=== PATIENT | male | born 1945 | race Caucasian/White ===

== ENCOUNTER 2016-10-31 16:21 | Inpatient (IN) | payer MEDICARE ==
[2016-10-31] MEDS ORDERED: MORPHINE SULFATE 4 MG/ML SYRINGE IVP STA (16:40)
[2016-10-31] MEDS ORDERED: ONDANSETRON 4 MG/2 ML VIAL IVP STA (16:40)
[2016-10-31] MEDS ORDERED: SODIUM CHLORIDE 0.9% 1,000 ML IV STA ×2 (16:40→19:33)
[2016-10-31] MEDS ORDERED: RX INFO: IV CONTRAST WAS GIVEN 1 EACH MISC MISCELLANE PRN (16:41)
--- NOTE | 2016-10-31 16:46 | ED ---
Abdominal Pain HPI - General Chief Complaint: Abdominal Pain Stated Complaint: Abdominal Pain, poss obstruction Time Seen by Provider: 10/31/16 16:32 Source: patient Mode of arrival: wheelchair Limitations: no limitations - History of Present Illness Initial Comments: Patient is a 71-year-old male with past medical history of HLD and colitis as a teen presenting with 2 days of abdominal pain. Patient states he's been dealing with bowel movements for the past 2 days. On he did take a stool softener to help bowel movement. Patient even took a fleets enema. Patient developed left lower quadrant pain which is worsening. He hasn't taken anything for the pain as bowel movements were helping the pain. Patient does not relate any thing that makes it worse. Patient denies fever but admits to chills. Denies nausea or vomiting. Denies diarrhea. Patient has been having bowel movements with medication assistance. Patient also complains of urinary frequency but not hematuria. Patient states pain changed around 12:00 today. Denies history of kidney stones. - Related Data Home Medications Medication Instructions Recorded Confirmed Atorvastatin [Lipitor] 40 mg PO HS 10/31/16 10/31/16 Allergies Allergy/AdvReac Type Severity Reaction Status Date / Time No Known Allergies Allergy Verified 10/31/16 19:43 Review of Systems ROS Statement: Those systems with pertinent positive or pertinent negative responses have been documented in the HPI. Constitutional: No fever and +chills. HENT: No congestion, no rhinorrhea and no sore throat. Eyes: No discharge and no redness. Respiratory: No cough and no shortness of breath. Cardiovascular: No chest pain and no palpitations. Gastrointestinal: No nausea, no vomiting, +abdominal pain and no diarrhea. Genitourinary: No dysuria and no hematuria. Musculoskeletal: No back pain and no arthralgias. Skin: No pallor and no rash. Neurological: No dizziness and No headaches. ROS Other: All systems not noted in ROS Statement are negative. Past Medical History Past Medical History: Hyperlipidemia History of Any Multi-Drug Resistant Organisms: None Reported Past Surgical History: Orthopedic Surgery Additional Past Surgical History / Comment(s): left foot Past Psychological History: No Psychological Hx Reported Smoking Status: Never smoker Past Alcohol Use History: Rare Past Drug Use History: None Reported General Exam - General Exam Comments Initial Comments: Constitutional: Patient appears well-developed and well-nourished. Severe distress. Head: Normocephalic and atraumatic. Eyes: Conjunctivae and EOM are normal. Right eye exhibits no discharge. Left eye exhibits no discharge. No scleral icterus. Neck: Normal range of motion. Neck supple. Cardiovascular: Normal rate and regular rhythm. No murmur heard. Pulmonary/Chest: Effort normal and breath sounds normal. No respiratory distress. No wheezes. Abdominal: Abdomen is soft with mild distention. He is most tender in left lower quadrant. No rebound or guarding. No CVA tenderness bilaterally. Musculoskeletal: Normal range of motion. No edema or tenderness. Neurological: Patient alert and oriented to person, place, and time. Skin: Skin is warm and dry. Not diaphoretic. Nursing notes and vitals reviewed. Limitations: no limitations Course Vital Signs 10/31/16 16:26 Temperature 97.2 F L Pulse Rate 73 Respiratory 16 Rate Blood Pressure 151/77 O2 Sat by Pulse 98 Oximetry - Reevaluation(s) Reevaluation #1: 10/31/16 18:28 Patient with severe abdominal pain. Patient was given IV fluids and morphine with little improvement. Patient required second dose of Dilaudid. - Consultations Consultation #1: Discussed care with Dr. Quintana. Explain that patient is a 71-year-old male with an obstructive left proximal ureteral lithiasis measuring 1 x 1.8 cm with hydronephrosis and possible forniceal rupture. Dr. Quintana recommends Toradol and then seeing if patient needs hospitalization for pain management. Medical Decision Making - Medical Decision Making Patient's a 71-year-old male with history of hyperlipidemia presenting with acute onset of left lower quadrant abdominal pain. Patient's pain was treated with morphine and IV fluids. Patient required Dilaudid as morphine was not helping his pain. CBC unremarkable. BMP showing BUN 22 and creatinine 1.47. UA showing ketones. CT shows a obstructive 11 mm ureterolithiasis at the proximal ureter with severe hydronephrosis and perinephric stranding. Patient was resting in bed. Course of stay improved but patient is concerned about return of pain. Stable pain at this time. Discussed physical exam and diagnostic tests with patient. Questions answered and patient is agreeable to staying in the hospital. Discussed H&P and pertinent diagnostic tests with Dr. Quintana who agrees with plan and accepts admission of patient. - Lab Data Result diagrams: 10/31/16 16:46 10/31/16 16:46 Lab Results 10/31/16 10/31/16 10/31/16 Range/Units 16:46 16:46 16:46 WBC 9.5 (3.8-10.6) k/uL RBC 5.30 (4.30-5.90) m/uL Hgb 14.5 (13.0-17.5) gm/dL Hct 43.7 (39.0-53.0) % MCV 82.4 D (80.0-100.0) fL MCH 27.3 (25.0-35.0) pg MCHC 33.1 (31.0-37.0) g/dL RDW 12.9 (11.5-15.5) % Plt Count 162 (150-450) k/uL Neutrophils % (Manual) 84.0 % Lymphocytes % (Manual) 7.0 % Monocytes % (Manual) 8.0 % Eosinophils % (Manual) 1.0 % Neutrophils # (Manual) 8.0 H (1.3-7.7) k/uL Lymphocytes # (Manual) 0.7 L (1.0-4.8) k/uL Monocytes # (Manual) 0.8 (0-1.0) k/uL Eosinophils # (Manual) 0.1 (0-0.7) k/uL Nucleated RBCs 0 (0-0) /100 WBC Manual Slide Review Performed PT (9.0-12.0) sec INR (<1.1) APTT (22.0-30.0) sec Sodium 136 L (137-145) mmol/L Potassium 4.0 (3.5-5.1) mmol/L Chloride 96 L (98-107) mmol/L Carbon Dioxide 25 (22-30) mmol/L Anion Gap 15 mmol/L BUN 22 H (9-20) mg/dL Creatinine 1.47 H (0.66-1.25) mg/dL Est GFR (MDRD) Af Amer 57 (>60 ml/min/1.73 sqM) Est GFR (MDRD) Non-Af 47 (>60 ml/min/1.73 sqM) Glucose 138 H (74-99) mg/dL Plasma Lactic Acid Jose David (0.7-2.0) mmol/L Calcium 9.6 (8.4-10.2) mg/dL Magnesium 1.6 (1.6-2.3) mg/dL Total Bilirubin 1.2 (0.2-1.3) mg/dL AST 21 (17-59) U/L ALT 39 (21-72) U/L Alkaline Phosphatase 100 (38-126) U/L Total Protein 7.8 (6.3-8.2) g/dL Albumin 4.5 (3.5-5.0) g/dL Lipase 88 (23-300) U/L Urine Color Urine Appearance (Clear) Urine pH (5.0-8.0) Ur Specific [place] (1.001-1.035) Urine Protein (Negative) Urine Glucose (UA) (Negative) Urine Ketones (Negative) Urine Blood (Negative) Urine Nitrate (Negative) Urine Bilirubin (Negative) Urine Urobilinogen (<2.0) mg/dL Ur Leukocyte Esterase (Negative) Blood Type B Negative Blood Type Confirm Blood Type Recheck CABO Indicated Antibody Screen NEGATIVE Spec Expiration Date 11/03/2016234510/31/16 10/31/16 10/31/16 Range/Units 16:46 17:00 17:16 WBC (3.8-10.6) k/uL RBC (4.30-5.90) m/uL Hgb (13.0-17.5) gm/dL Hct (39.0-53.0) % MCV (80.0-100.0) fL MCH (25.0-35.0) pg MCHC (31.0-37.0) g/dL RDW (11.5-15.5) % Plt Count (150-450) k/uL Neutrophils % (Manual) % Lymphocytes % (Manual) % Monocytes % (Manual) % Eosinophils % (Manual) % Neutrophils # (Manual) (1.3-7.7) k/uL Lymphocytes # (Manual) (1.0-4.8) k/uL Monocytes # (Manual) (0-1.0) k/uL Eosinophils # (Manual) (0-0.7) k/uL Nucleated RBCs (0-0) /100 WBC Manual Slide Review PT 10.2 (9.0-12.0) sec INR 1.0 (<1.1) APTT 22.4 (22.0-30.0) sec Sodium (137-145) mmol/L Potassium (3.5-5.1) mmol/L Chloride (98-107) mmol/L Carbon Dioxide (22-30) mmol/L Anion Gap mmol/L BUN (9-20) mg/dL Creatinine (0.66-1.25) mg/dL Est GFR (MDRD) Af Amer (>60 ml/min/1.73 sqM) Est GFR (MDRD) Non-Af (>60 ml/min/1.73 sqM) Glucose (74-99) mg/dL Plasma Lactic Acid Jose David 2.0 (0.7-2.0) mmol/L Calcium (8.4-10.2) mg/dL Magnesium (1.6-2.3) mg/dL Total Bilirubin (0.2-1.3) mg/dL AST (17-59) U/L ALT (21-72) U/L Alkaline Phosphatase (38-126) U/L Total Protein (6.3-8.2) g/dL Albumin (3.5-5.0) g/dL Lipase (23-300) U/L Urine Color Yellow Urine Appearance Clear (Clear) Urine pH 7.0 (5.0-8.0) Ur Specific [place] 1.013 (1.001-1.035) Urine Protein Negative (Negative) Urine Glucose (UA) Trace H (Negative) Urine Ketones 1+ H (Negative) Urine Blood Negative (Negative) Urine Nitrate Negative (Negative) Urine Bilirubin Negative (Negative) Urine Urobilinogen <2.0 (<2.0) mg/dL Ur Leukocyte Esterase Negative (Negative) Blood Type Blood Type Confirm Blood Type Recheck Antibody Screen Spec Expiration Date 10/31/16 Range/Units 18:21 WBC (3.8-10.6) k/uL RBC (4.30-5.90) m/uL Hgb (13.0-17.5) gm/dL Hct (39.0-53.0) % MCV (80.0-100.0) fL MCH (25.0-35.0) pg MCHC (31.0-37.0) g/dL RDW (11.5-15.5) % Plt Count (150-450) k/uL Neutrophils % (Manual) % Lymphocytes % (Manual) % Monocytes % (Manual) % Eosinophils % (Manual) % Neutrophils # (Manual) (1.3-7.7) k/uL Lymphocytes # (Manual) (1.0-4.8) k/uL Monocytes # (Manual) (0-1.0) k/uL Eosinophils # (Manual) (0-0.7) k/uL Nucleated RBCs (0-0) /100 WBC Manual Slide Review PT (9.0-12.0) sec INR (<1.1) APTT (22.0-30.0) sec Sodium (137-145) mmol/L Potassium (3.5-5.1) mmol/L Chloride (98-107) mmol/L Carbon Dioxide (22-30) mmol/L Anion Gap mmol/L BUN (9-20) mg/dL Creatinine (0.66-1.25) mg/dL Est GFR (MDRD) Af Amer (>60 ml/min/1.73 sqM) Est GFR (MDRD) Non-Af (>60 ml/min/1.73 sqM) Glucose (74-99) mg/dL Plasma Lactic Acid Jose David (0.7-2.0) mmol/L Calcium (8.4-10.2) mg/dL Magnesium (1.6-2.3) mg/dL Total Bilirubin (0.2-1.3) mg/dL AST (17-59) U/L ALT (21-72) U/L Alkaline Phosphatase (38-126) U/L Total Protein (6.3-8.2) g/dL Albumin (3.5-5.0) g/dL Lipase (23-300) U/L Urine Color Urine Appearance (Clear) Urine pH (5.0-8.0) Ur Specific [place] (1.001-1.035) Urine Protein (Negative) Urine Glucose (UA) (Negative) Urine Ketones (Negative) Urine Blood (Negative) Urine Nitrate (Negative) Urine Bilirubin (Negative) Urine Urobilinogen (<2.0) mg/dL Ur Leukocyte Esterase (Negative) Blood Type Blood Type Confirm B Negative Blood Type Recheck Antibody Screen Spec Expiration Date Disposition Clinical Impression: Ureterolithiasis, Hydronephrosis, Ileus Disposition: ADMITTED IP TO [facility] Condition: Good Decision to Admit Reason: Admit from EC
[2016-10-31 17:08] LABS: Calcium 9.6 mg/dL (8.4-10.2); Magnesium 1.6 mg/dL (1.6-2.3); Partial Thromboplastin Time 22.4 sec (22.0-30.0); Prothrombin Time 10.2 sec (9.0-12.0); Total Bilirubin 1.2 mg/dL (0.2-1.3); Total Protein 7.8 g/dL (6.3-8.2)
[2016-10-31 17:09] LABS: Aty Lym Flag Marked; CH 28.5; CHCM 34.7; HCT 43.7 % (39.0-53.0); HDW 2.79; HGB 14.5 gm/dL (13.0-17.5); MCH 27.3 pg (25.0-35.0); MCHC 33.1 g/dL (31.0-37.0); Mean Platelet Volume 6.6; RDW 12.9 % (11.5-15.5); WBC 9.5 k/uL (3.8-10.6); WBC (Perox) 9.33
[2016-10-31 17:10] LABS: MCV 82.4 fL (80.0-100.0)
[2016-10-31] MEDS ORDERED: HYDROmorphone 1 MG/ML 1 ML SYRINGE IVP STA (17:21)
[2016-10-31 17:24] LABS: Appearance,Urine Clear (Clear); Bilirubin,Urine Negative (Negative); Glucose,Urine (UA) Trace (Negative); Ketones,Urine 1+ (Negative); Leukocyte Esterase,Urine Negative (Negative); Nitrite,Urine Negative (Negative); Protein,Urine Negative (Negative); Specific Gravity,Urine 1.013 (1.001-1.035); UA Billing (MACRO vs. MICRO) CHEM; Urobilinogen,Urine <2.0 mg/dL (<2.0)
[2016-10-31 18:14] LABS: Add Differential Manual Differential
[2016-10-31 18:20] LABS: Manual Review Performed; Nucleated Red Blood Cells 0 /100 WBC (0-0); Total Cells Counted 100
--- NOTE | 2016-10-31 18:36 | CT ---
EXAMINATION TYPE: CT abdomen pelvis wo con DATE OF EXAM: 10/31/2016 5:54 PM COMPARISON: Prior chest CT 12 August 2011 HISTORY: Left lower quadrant pain and left flank pain. CT DLP: 521.40 mGycm Automated exposure control for dose reduction was used. TECHNIQUE: Helical acquisition of images from the lung bases through the pelvis. FINDINGS: There are coronary artery calcifications. LUNG BASES: No significant abnormality is appreciated. AORTA: No significant abnormality is appreciated. LIVER/GB: Cystic focus within the left lobe measures 13 mm is stable PANCREAS: No significant abnormality is seen. SPLEEN: No significant abnormality is seen. ADRENALS: No significant abnormality is seen. KIDNEYS: There is marked left-sided hydronephrosis, there is perirenal fluid density. Proximal left u reteral calculus is present measuring 1 cm x 1.8 cm. Nonobstructive renal calculi are present bilater ally, the largest at the lower pole on the right measures 5 mm, and additional 2 calcifications measu ring 1 to 2 mm. The upper pole calcifications within the left kidney measuring 1 to 2 mm, mid pole 2 calcifications are present, the larger measures 7 mm, the smaller 2 mm. REPRODUCTIVE ORGANS: Prostate is enlarged. URINARY BLADDER: Inferior impression on the bladder due to prostate enlargement. BOWEL: No evident bowel obstruction. FREE AIR: No Free Air is visible. ASCITES: None visible. PELVIC ADENOPATHY: None visualized. RETROPERITONEAL ADENOPATHY: No Retroperitoneal Adenopathy visible. OSSEOUS STRUCTURES: Degenerative disc changes, facet arthropathy noted IMPRESSION: PROXIMAL LEFT URETERAL CALCULUS CAUSING HYDRONEPHROSIS AND LIKELY FORNICEAL RUPTURE, bilateral nephro lithiasis. Noncontrast exam.
[2016-10-31] MEDS ORDERED: KETOROLAC 30 MG/ML 1 ML VIAL IVP STA (18:48)
--- NOTE | 2016-10-31 19:13 | XR ---
Abdomen HISTORY: Left flank pain Correlation to CT scan same date Proximal left ureteral calculus is noted in the left paraspinal location at the level L3. Contrast is present within the bladder. Distention of the colon may be due to ileus. Left-sided renal calculi moralez spected. Bowel gas obscures underlying detail. IMPRESSION: Proximal left ureteral calculus.
[2016-10-31] MEDS ORDERED: HYDROcodone/APAP 5-325MG 1 EACH TAB PO PRN (19:39)
[2016-10-31] MEDS ORDERED: NALOXONE 0.4 MG/ML 1 ML VIAL IV PRN (19:39)
[2016-10-31] MEDS ORDERED: KETOROLAC 30 MG/ML 1 ML VIAL IVP PRN (19:39)
[2016-10-31] MEDS ORDERED: ONDANSETRON 4 MG/2 ML VIAL IVP PRN (19:39)
[2016-10-31] MEDS ORDERED: HYDROmorphone 1 MG/ML 1 ML SYRINGE IV PRN (19:39)
[2016-10-31] MEDS ORDERED: ATORVASTATIN 40 MG TAB PO SCH (21:00)
[2016-10-31] MEDS: DOCUSATE 100 MG CAP PO SCH (21:16)
[2016-11-01 09:30] VITALS: BP 129/74; PULSE 80; RESP 15; TEMP 98.2
--- NOTE | 2016-11-01 10:04 | HP ---
DATE OF ADMISSION: 10/31/2016 DATE OF DISCHARGE: 11/01/2016 ADMISSION HISTORY AND PHYSICAL AND DISCHARGE NOTE: FINAL DISCHARGE DIAGNOSIS: Left flank pain secondary to proximal left ureteral calculus. HISTORY OF PRESENT ILLNESS: The patient is a 71-year-old male admitted through the emergency room yesterday evening for treatment of severe left flank pain. The patient said he first began experiencing some left lower quadrant discomfort on 10/29. He initially thought that this could be from the flu. He said he had no discomfort on 10/30 but on 10/31 noted increasing pain in the left lower quadrant. He said the pain at one time and was rated as a 10/10. It was not associated with nausea or vomiting. The patient had noted some darker urine several weeks ago, but noted no gross hematuria. He did note increased frequency and urgency to void. He presented to the emergency room where he was evaluated and noted to have a white blood count of 7500. BUN was 22, creatinine was 1.47. CT scan of the abdomen and pelvis identified an 8 x 18 mm calculus in the proximal left ureter with moderate hydronephrosis. Two nonobstructive calculi were noted in the lower pole of the left kidney measuring 4 x 6 mm and 2 mm in diameter respectively. Three nonobstructive right renal calculi were noted. The largest was a 2 or 3 mm stone in the lower pole of the right kidney. In the emergency room, the patient's pain was controllable only with Dilaudid. The patient lives in [place] and although his pain improved while he was in the emergency room, he was reluctant to be discharged as he was concerned that his pain might recur. Overnight, the patient did not require any more IV analgesics but was given [place] this morning when he rated his pain a 4/10. At the present time, the patient is comfortable. He no longer has urgency to void and he has remained afebrile. The patient has no previous history of urolithiasis and there is no family history of kidney stones. PAST MEDICAL HISTORY:Significant in regard to borderline diabetes mellitus, which has not required medical treatment. He also has hypercholesterolemia, which has been treated with Lipitor. He has NO ALLERGIES. His only surgery in the past was surgical repair of a left Achilles tendon rupture. There is no history of hypertension, rheumatic fever, tuberculosis or hepatitis. REVIEW OF SYSTEMS: No history of seizures, blackouts, dizziness stroke, shortness of breath with exertion, asthma, chest pain with exertion, palpitations, heart murmur, ulcers or heartburn. SOCIAL HISTORY: The patient is and is a nonsmoker. FAMILY HISTORY: The patient's father and brother have had prostate cancer. Physical exam reveals a well-developed, 71-year-old male who is alert and oriented. Afebrile, blood pressure 103/64. HEENT: No supraclavicular or cervical adenopathy. CHEST: Breathing is unlabored. ABDOMEN: No hepatosplenomegaly. No flank tenderness. There is no tenderness in the upper or lower abdomen to palpation. GENITALIA: Both testicles are descended. No hernias noted. IMPRESSION: Left flank pain, probably secondary to 8 x 18 mm proximal left ureteral calculus. It is also possible that the patient passed a smaller calculus sometime yesterday, which would explain why most of his discomfort was up in the left lower quadrant and why he had frequency and urgency. PLAN: The patient is comfortable at the present time and will be discharged. I discussed treatment options of his proximal left ureteral calculus including ESWL, percutaneous nephrostolithotomy or ureteroscopy with lithotripsy. Patient is interested in proceeding with ESWL which will be performed tomorrow afternoon under intravenous sedation. Patient is aware of the operative risks, which include anesthesia, hematuria or intrarenal bleeding, inability to fragment the calculus or ureteral obstruction from calculus fragments which may require additional surgical procedures for treatment. ROXANNA
[2016-11-01 11:00] LABS: Prothrombin Time 10.4 sec (9.0-12.0)
[2016-11-01] MEDS: DOCUSATE 100 MG CAP PO SCH (11:02)
== END 2016-11-01 13:25 | disposition home or self-care (01) | DRG 694 ==
LOC: EC 16:21 → 3SUR 19:45
PROVIDERS: ADMIT Urology; ATTEND Urology
DX: N13.2 Hydronephrosis with renal and ureteral calculous obstruction (principal); E78.5 Hyperlipidemia, unspecified; E78.00 Pure hypercholesterolemia, unspecified; R73.03 Prediabetes; Z79.899 Other long term (current) drug therapy
CPT/HCPCS: 36415; 74000; 74176; 80053; 81003; 83605; 83690; 83735; 85025; 85610; 85730; 86850; 86900; 86901; 87086; 93005; 96361; 96374; 96375; 99285

== ENCOUNTER 2016-11-02 12:31 | Day surgery (SDC) | payer MEDICARE ==
[2016-11-02 13:39] VITALS: TEMP 98.5
[2016-11-02] MEDS ORDERED: LIDOCAINE 1% 20 ML VIAL (10MG/ML) FOR IV START INTRADERMA ONE (13:40)
[2016-11-02] MEDS ORDERED: LACTATED RINGERS 1,000 ML IV ONE (13:40)
[2016-11-02] MEDS ORDERED: MIDAZOLAM 2 MG/2 ML VIAL ONE (13:51)
[2016-11-02] MEDS ORDERED: PROPOFOL 10 MG/ML 20 ML VIAL IV ONE (13:51)
[2016-11-02] MEDS ORDERED: fentaNYL (PF) 50 MCG/ML 2 ML AMP ONE (13:51)
[2016-11-02 15:06] VITALS: RESP 18
[2016-11-02] MEDS ORDERED: HYDROcodone/APAP 7.5-325MG 1 EACH TAB PO ONE (15:07)
[2016-11-02] MEDS ORDERED: HYDROmorphone 1 MG/ML 1 ML SYRINGE IVP ONE (15:33)
[2016-11-02 16:02] VITALS: BP 122/72; PULSE 80
--- NOTE | 2016-11-03 10:55 | OP ---
DATE OF SERVICE: 11/02/2016 SURGEON: DEMARIO MEHTA MD PREOPERATIVE DIAGNOSIS: Proximal left ureteral calculus. POSTOPERATIVE DIAGNOSIS: Proximal left ureteral calculus. OPERATION: Extracorporeal shockwave lithotripsy of proximal left ureteral calculus. ANESTHESIA: Intravenous sedation. Patient is a 71-year-old male who developed severe left flank pain on 10/31 and was discovered to have an 8 x 18 mm calculus in the proximal left ureter. Patient was admitted overnight for pain control and was released yesterday morning after reviewing treatment options. The patient has elected to proceed with ESWL for treatment of his calculus. DESCRIPTION OF PROCEDURE: Patient was taken to the operating suite, where the patient was placed in the supine position on the fluoroscopy table. The calculus in the proximal left ureter was localized using biplanar fluoroscopy, intravenous sedation was given. Lithotripsy was performed using the Dornier compact delta unit. Patient received 2500 shocks at level 5 at a rate of 80 shocks per minute. There appeared to be some fragmentation of the calculus. Anesthesia was reversed and the patient was returned to the recovery room, awake and in satisfactory condition. Patient tolerated the procedure well and left the operating room awake and in satisfactory condition. The patient will be seen back on 11/10 at which time a followup KUB will be obtained. ROXANNA
== END 2016-11-02 16:30 | disposition home or self-care (01) ==
LOC: ORWHC2ENDO 12:31
PROVIDERS: ATTEND Urology
DX: N20.1 Calculus of ureter (principal); E78.5 Hyperlipidemia, unspecified; Z79.891 Long term (current) use of opiate analgesic; Z79.899 Other long term (current) drug therapy
CPT/HCPCS: 50590; J2250; J3010; J1170; J2704; 99153

== ENCOUNTER → 2016-11-10 | Outpatient (CLI) | payer MEDICARE ==
--- NOTE | 2016-11-10 10:00 | XR ---
EXAMINATION TYPE: XR KUB DATE OF EXAM: 11/10/2016 9:34 AM COMPARISON: 10/31/2016 HISTORY: Left flank pain TECHNIQUE: One view abdominal series FINDINGS: The osseous structures are intact. The bowel gas pattern is nonspecific. Extensive retained fecal de bris. Hypertrophic change of the spine. There now is fragmentation of the large oblong calcification within the proximal left ureter. There a re approximately 6 fragments now seen with the largest measuring a diameter of 5.2 mm. Location of ca lcification similar to previous x-ray. Calcifications in the pelvis are stable from the previous exam and likely vascular. IMPRESSION: 1. Nonspecific abdomen. Fragmentation of the left proximal ureteral calculus with approximately 6 fr agments now seen immediately adjacent to one another. Largest measures a diameter of 5.2 mm.
== END ==
LOC: RADXRMAIN 09:04
PROVIDERS: ATTEND Urology
DX: N20.1 Calculus of ureter (principal)
CPT/HCPCS: 74000

== ENCOUNTER → 2016-12-09 | Outpatient (CLI) | payer MEDICARE ==
--- NOTE | 2016-12-09 13:17 | XR ---
EXAMINATION TYPE: XR KUB DATE OF EXAM: 12/09/2016 10:56 AM COMPARISON: 11/10/2016 HISTORY: Left ureteral calculus TECHNIQUE: One view abdominal series FINDINGS: The osseous structures are intact. The bowel gas pattern is nonspecific. Hypertrophic change of the spine. Arthropathy of the hips. Extensive retained fecal debris limits evaluation of the kidneys and Findings are suspicious for punctate right-sided renal stones the largest measuring 3 mm. A total of 3 suspected. No definite suspicious calculi on the left by standard x-ray although CT scan has report ed bilateral nonobstructive renal calculi. Calcifications in the pelvis are most likely vascular. The re is a calcification near the left UPJ measuring 5 mm which could be in the course of the left urete r. IMPRESSION: 1. Nonspecific abdomen. Exam limited by overlying bowel content. Findings are suggestive of a right- sided renal calculi. Renal stones noted by CT scan are not as well-seen by standard x-ray. 2. Left ureteral distal calculus suspected measuring 5 mm in diameter.
== END ==
LOC: RADXRMAIN 10:42
PROVIDERS: ATTEND Urology
DX: N20.1 Calculus of ureter (principal)
CPT/HCPCS: 74000

== ENCOUNTER → 2017-11-17 | Outpatient (CLI) | payer MEDICARE ==
--- NOTE | 2017-11-17 08:52 | US ---
EXAMINATION TYPE: US kidneys/renal and bladder DATE OF EXAM: 11/17/2017 COMPARISON: KUB 12/09/2016, CT abdomen pelvis 10/31/2016 CLINICAL HISTORY: Renal Calculi Z87.442 Gross Hematuria R31.0. know h/o stone this past few months, l ithotripsy, gross hematuria and passed a stone a few days ago EXAM MEASUREMENTS: Right Kidney: 12.2 x 4.7 x 5.1 cm Left Kidney: 10.8 x 4.4 x 6.9 cm Right Kidney: mild hydronephrosis Left Kidney: mild hydronephrosis Bladder: 1.9cm twinkling seen at dependent portion of bladder, this was not blocking a ureter jet Bilateral Jets seen: yes IMPRESSION: 1. Twinkle artifact at dependant urinary bladder. This is not identified on comparison images. Consid er prostate evaluation. Consider cystoscopy. 2. Mild bilateral hydronephrosis.
== END | disposition home or self-care (01) ==
LOC: RADUSWWP 07:10
PROVIDERS: ATTEND Family Medicine
DX: N13.30 Unspecified hydronephrosis (principal); R93.41 Abnormal radiologic findings on diagnostic imaging of renal pelvis, ureter, or bladder; R31.0 Gross hematuria; R30.0 Dysuria; Z87.442 Personal history of urinary calculi
CPT/HCPCS: 76770

== ENCOUNTER 2018-05-02 03:52 | Emergency (ER) | payer MEDICARE ==
--- NOTE | 2018-05-02 05:02 | ED ---
ENT HPI - General Chief complaint: ENT Stated complaint: ENT Time Seen by Provider: 05/02/18 04:26 Source: patient Mode of arrival: ambulatory Limitations: no limitations - History of Present Illness complaint: sore throat Onset/Timin -: days(s) Location: throat Severity: moderate Quality: burning Consistency: constant Improves with: none Worsens with: none Associated Symptoms: sore throat - Related Data Home Medications Medication Instructions Recorded Confirmed Ezetimibe [Zetia] 10 mg PO DAILY 05/02/18 05/02/18 Tamsulosin [Flomax] 0.4 mg PO DAILY 05/02/18 05/02/18 Previous Rx's Medication Instructions Recorded Lidocaine Viscous [Xylocaine 5 ml PO Q3HR PRN #100 ml 05/02/18 Viscous 2%] Allergies Allergy/AdvReac Type Severity Reaction Status Date / Time No Known Allergies Allergy Verified 05/02/18 04:00 Review of Systems ROS Statement: Those systems with pertinent positive or pertinent negative responses have been documented in the HPI. ROS Other: All systems not noted in ROS Statement are negative. Constitutional: Denies: fever, chills ENT: Reports: congestion. Denies: ear pain Respiratory: Denies: cough, dyspnea Cardiovascular: Denies: chest pain Gastrointestinal: Denies: abdominal pain, nausea, vomiting Skin: Denies: rash Neurological: Denies: headache Past Medical History Past Medical History: Hyperlipidemia History of Any Multi-Drug Resistant Organisms: None Reported Past Surgical History: Orthopedic Surgery Additional Past Surgical History / Comment(s): left foot Past Anesthesia/Blood Transfusion Reactions: No Reported Reaction Past Psychological History: No Psychological Hx Reported Smoking Status: Never smoker Past Alcohol Use History: Rare Past Drug Use History: None Reported - Past Family History Father Family Medical History: No Reported History General Exam Limitations: no limitations General appearance: alert, in no apparent distress Head exam: Present: atraumatic, normocephalic Eye exam: Present: normal appearance ENT exam: Present: mucous membranes moist, other (There is some mild injection of the oropharynx. No edema of the uvula, which is midline.) Neck exam: Present: normal inspection, full ROM. Absent: tenderness, lymphadenopathy Respiratory exam: Present: normal lung sounds bilaterally. Absent: respiratory distress, wheezes, rales, rhonchi, stridor Cardiovascular Exam: Present: regular rate, normal rhythm, normal heart sounds. Absent: systolic murmur, diastolic murmur, rubs, gallop GI/Abdominal exam: Present: soft. Absent: distended, tenderness, guarding, rebound, organomegaly, mass Skin exam: Present: warm, dry, intact, normal color. Absent: rash Course Vital Signs 05/02/18 03:55 Temperature 97.7 F Pulse Rate 67 Respiratory 20 Rate Blood Pressure 155/79 O2 Sat by Pulse 100 Oximetry Medical Decision Making - Lab Data Lab Results 05/02/18 Range/Units 04:30 Group A Strep Rapid Negative (Negative) Disposition Clinical Impression: Acute viral pharyngitis Disposition: HOME SELF-CARE Condition: Good Instructions: Pharyngitis (ED) Prescriptions: Lidocaine Viscous [Xylocaine Viscous 2%] 5 ml PO Q3HR PRN #100 ml PRN Reason: Sore Throat Is patient prescribed a controlled substance at d/c from ED?: No Referrals: Annalisa Harper DO [Primary Care Provider] - 1-2 days
[2018-05-02] MEDS ORDERED: LIDOCAINE VISCOUS 2% 15 ML CUP MUCOUS MEM STA (05:32)
[2018-05-02 05:48] VITALS: BP 140/77; PULSE 70; RESP 16; TEMP 98
== END 2018-05-02 05:48 | disposition home or self-care (01) ==
LOC: EC 03:52
DX: J02.9 Acute pharyngitis, unspecified (principal); E78.5 Hyperlipidemia, unspecified; Z79.899 Other long term (current) drug therapy
CPT/HCPCS: 87081; 87430; 99283

== ENCOUNTER 2020-11-10 05:06 | Emergency (ER) | payer MEDICARE ==
[2020-11-10 05:16] VITALS: TEMP 97.7
[2020-11-10] MEDS ORDERED: NYSTAT-TRIAMCIN 100,000-0.1 UNIT/GM-% CREAM 30 GM TUBE TOPICAL STA (06:12)
[2020-11-10] MEDS ORDERED: TRIAMCINOLONE 0.1% CREAM 80 GM TUBE TOPICAL STA (06:19)
[2020-11-10] MEDS ORDERED: NYSTATIN 100,000UNIT/GM CREAM 30 GM TUBE TOPICAL STA (06:19)
--- NOTE | 2020-11-10 06:19 | ED ---
Skin/Abscess/FB HPI - General Chief complaint: Skin/Abscess/Foreign Body Stated complaint: Possible spider bite Time Seen by Provider: 11/10/20 05:08 Source: patient, RN notes reviewed, old records reviewed Mode of arrival: ambulatory Limitations: no limitations - History of Present Illness Initial comments: This is a 75-year-old male presents today for blood by her right lower extremity patient states he's had an itchy rash that appeared yesterday and has been persistent. Nothing appears to be helping with his itching at this time. Patient has no other complaints, was not in the [place] or anything when this event happened he was just at home MD complaint: rash -: hour(s) Location: RLE Severity: mild Severity scale (1-10): 2 Quality: other (Itching) Consistency: constant Improves with: none Worsens with: none Context: none, recent illness Treatments Prior to Arrival: none - Related Data Home Medications Medication Instructions Recorded Confirmed Ezetimibe [Zetia] 10 mg PO DAILY 05/02/18 05/02/18 Tamsulosin [Flomax] 0.4 mg PO DAILY 05/02/18 05/02/18 Previous Rx's Medication Instructions Recorded Lidocaine Viscous [Xylocaine 5 ml PO Q3HR PRN #100 ml 05/02/18 Viscous 2%] Allergies Allergy/AdvReac Type Severity Reaction Status Date / Time No Known Allergies Allergy Verified 11/10/20 05:15 Review of Systems ROS Statement: Those systems with pertinent positive or pertinent negative responses have been documented in the HPI. ROS Other: All systems not noted in ROS Statement are negative. Past Medical History Past Medical History: Hyperlipidemia History of Any Multi-Drug Resistant Organisms: None Reported Past Surgical History: Orthopedic Surgery Additional Past Surgical History / Comment(s): left foot Past Anesthesia/Blood Transfusion Reactions: No Reported Reaction Past Psychological History: No Psychological Hx Reported Smoking Status: Never smoker Past Alcohol Use History: Rare Past Drug Use History: None Reported - Past Family History Father Family Medical History: No Reported History General Exam - General Exam Comments Initial Comments: Right lower extremity does have what appears to be ringworm lesion lesion Limitations: no limitations General appearance: alert, in no apparent distress Head exam: Present: atraumatic, normocephalic, normal inspection Eye exam: Present: normal appearance, PERRL, EOMI. Absent: scleral icterus, conjunctival injection, periorbital swelling ENT exam: Present: normal exam, mucous membranes moist Neck exam: Present: normal inspection. Absent: tenderness, meningismus, lymphadenopathy Respiratory exam: Present: normal lung sounds bilaterally. Absent: respiratory distress, wheezes, rales, rhonchi, stridor Cardiovascular Exam: Present: regular rate, normal rhythm, normal heart sounds. Absent: systolic murmur, diastolic murmur, rubs, gallop, clicks GI/Abdominal exam: Present: soft, normal bowel sounds. Absent: distended, tenderness, guarding, rebound, rigid Extremities exam: Present: normal inspection, full ROM, normal capillary refill. Absent: tenderness, pedal edema, joint swelling, calf tenderness Back exam: Present: normal inspection Neurological exam: Present: alert, oriented X3, CN II-XII intact Psychiatric exam: Present: normal affect, normal mood Skin exam: Present: warm, dry, intact, normal color. Absent: rash Course Vital Signs 11/10/20 11/10/20 05:11 06:39 Temperature 97.7 F Pulse Rate 68 83 Respiratory 22 16 Rate Blood Pressure 148/71 122/85 O2 Sat by Pulse 97 100 Oximetry - Reevaluation(s) Reevaluation #1: Medical record is reviewed Patient symptoms are improved here in the ER Patient informed results and questions have been answered Patient family feel comfortable for discharge Medical Decision Making - Medical Decision Making 75 male who believes he had some sort of bite to his right lower extremity. Patient does appear to have ringworm of that lower extremity patient placed on appropriate cream and can be discharged home Disposition Clinical Impression: Tinea corporis Disposition: HOME SELF-CARE Condition: Good Instructions (If sedation given, give patient instructions): Tinea Corporis (ED) Is patient prescribed a controlled substance at d/c from ED?: No Referrals: Julissa Casanova DO [Primary Care Provider] - 1-2 days
[2020-11-10 06:40] VITALS: BP 122/85; PULSE 83; RESP 16
== END 2020-11-10 06:40 | disposition home or self-care (01) ==
LOC: EC 05:06
DX: B35.4 Tinea corporis (principal); E78.5 Hyperlipidemia, unspecified
CPT/HCPCS: 99282

== ENCOUNTER 2021-04-19 23:12 | Emergency (ER) | payer MEDICARE ==
[2021-04-19 23:17] VITALS: BP 167/87; PULSE 65; RESP 18; TEMP 97.6
--- NOTE | 2021-04-19 23:50 | ED ---
Skin/Abscess/FB HPI - General Chief complaint: Skin/Abscess/Foreign Body Stated complaint: Urogenital Time Seen by Provider: 04/19/21 23:20 Source: patient Mode of arrival: ambulatory - History of Present Illness Initial comments: 75-year-old male presents emergency Department with a chief complaint of rash on the penis. Patient reports he noticed a rash since yesterday. States it is located on the foreskin once he pulls it back. States it is slightly itchy but is not painful. Denies any discharge. He states it is red and irritated. States he was feeding the [place] with fertilizer tablets and he believes that he may have touched his penis after taking the tablets. However is not completely sure. Patient states he does not have any obstructive or infectious urinary symptoms. - Related Data Home Medications Medication Instructions Recorded Confirmed Ezetimibe [Zetia] 10 mg PO DAILY 05/02/18 05/02/18 Tamsulosin [Flomax] 0.4 mg PO DAILY 05/02/18 05/02/18 Previous Rx's Medication Instructions Recorded Lidocaine Viscous [Xylocaine 5 ml PO Q3HR PRN #100 ml 05/02/18 Viscous 2%] Nystatin 100,000 Unit/gm Powd 1 applic TOPICAL BID #15 gram 04/19/21 [Mycostatin Powder] Allergies Allergy/AdvReac Type Severity Reaction Status Date / Time No Known Allergies Allergy Verified 04/19/21 23:17 Review of Systems ROS Statement: Those systems with pertinent positive or pertinent negative responses have been documented in the HPI. ROS Other: All systems not noted in ROS Statement are negative. Past Medical History Past Medical History: Hyperlipidemia History of Any Multi-Drug Resistant Organisms: None Reported Past Surgical History: Orthopedic Surgery Additional Past Surgical History / Comment(s): left foot Past Anesthesia/Blood Transfusion Reactions: No Reported Reaction Past Psychological History: No Psychological Hx Reported Smoking Status: Never smoker Past Alcohol Use History: Rare Past Drug Use History: None Reported - Past Family History Father Family Medical History: No Reported History General Exam Limitations: no limitations General appearance: alert, in no apparent distress Head exam: Present: atraumatic, normocephalic, normal inspection Eye exam: Present: normal appearance, PERRL, EOMI Pupils: Present: normal accommodation ENT exam: Present: normal exam, normal oropharynx, mucous membranes moist Neck exam: Present: normal inspection, full ROM. Absent: lymphadenopathy Respiratory exam: Present: normal lung sounds bilaterally. Absent: respiratory distress Cardiovascular Exam: Present: regular rate, normal rhythm, normal heart sounds exam: Absent: normal inspection (Excoriation noted on the foreskin of the base of the glans penis.), testicular tenderness, urethral discharge, scrotal swelling, vertical testicular lie, circumcision (Noncircumcised) Extremities exam: Present: normal inspection, full ROM. Absent: tenderness Back exam: Present: normal inspection, full ROM. Absent: tenderness Neurological exam: Present: alert, oriented X3 Psychiatric exam: Present: normal affect, normal mood Skin exam: Present: warm, dry, intact, normal color Course Vital Signs 04/19/21 23:14 Temperature 97.6 F Pulse Rate 65 Respiratory 18 Rate Blood Pressure 167/87 O2 Sat by Pulse 98 Oximetry Medical Decision Making - Medical Decision Making 75-year-old male presents to emergency Department with a chief complaint of rash in the penis. Physical examination, the area appears to be excoriated once he pulls back the foreskin. Most excoriation is near the base of the glans penis. Nonpainful, erythematous and slightly itchy. I suspect this is secondary to increased moisture because the patient is noncircumcised and quite active. I will prescribe nystatin powder. Advised them to give the area dry and clean. Strict return parameters were thoroughly discussed with patient was understanding and agreeable. Case discussed with physician Disposition Clinical Impression: Penile rash Disposition: HOME SELF-CARE Condition: Stable Instructions (If sedation given, give patient instructions): Angelack Marvin (ED) Additional Instructions: Apply powder medication. Keep the area clean and dry. Follow with primary care physician. Prescriptions: Nystatin 100,000 Unit/gm Powd [Mycostatin Powder] 1 applic TOPICAL BID #15 gram Is patient prescribed a controlled substance at d/c from ED?: No Referrals: Julissa Casanova DO [Primary Care Provider] - 1-2 days Time of Disposition: 23:50
== END 2021-04-20 00:02 | disposition home or self-care (01) ==
LOC: EC 23:12
DX: N48.89 Other specified disorders of penis (principal); E78.5 Hyperlipidemia, unspecified; Z79.899 Other long term (current) drug therapy
CPT/HCPCS: 99282

== ENCOUNTER → 2021-06-25 | Outpatient (CLI) | payer MEDICARE ==
--- NOTE | 2021-06-25 11:59 | NM ---
EXAMINATION TYPE: NM stress cardiolite complete DATE OF EXAM: 06/25/2021 COMPARISON: NONE HISTORY: Abnormal EKG TECHNIQUE: After the intravenous administration of 9.4 mCi Tc 99m Sestamibi - Rest images obtained 4 5 minutes post injection. The patient exercised using a YOLANDA protocol and 1 minute prior to peak e xercise was injected with 25.0 mCi Tc 99m Sestamibi - Stress images obtained 20 minutes post injectio n. FINDINGS: Targeted heart rate was achieved during performance of the study. Review of stress and rest SPECT heather ges demonstrates area stress-induced reversible ischemia involving the lateral wall the myocardium. R eport called to the patient's clinician 11:55 AM 06/25/2021. Gated analysis shows normal wall motion with an estimated left ventricular ejection fraction of 50 %. IMPRESSION: 1. Exam positive for stress-induced reversible ischemia lateral wall myocardium.
--- NOTE | 2021-06-25 14:12 | EST ---
EXERCISE STRESS DATE OF SERVICE: 06/25/21 AGE: 75 SEX: M HT: 5'10" WT: 192 lbs. PROTOCOL: Lexiscan STAGE: 3 DURATION OF EXERCISE: 9:00 HEART RATE REST: 80 BLOOD PRESSURE REST: 158/100 MAXIMUM HEART RATE ACHIEVED: 146 MAXIMUM BLOOD PRESSURE: 194/79 85% MPHR: 123 100% MPHR: 145 METS: 10.3 INDICATIONS: AV block RESULTS: Baseline EKG revealed normal sinus rhythm with nonspecific T-wave flattening and also isolated PVCs. Patient walked on a standard Pernell protocol for 9 minutes and achieved a maximal heart rate of 146 beats per minute which is well above 85% of predicted maximal. He developed fatigue and shortness of breath but did not have any angina. EKG revealed upsloping nonspecific ST-segment changes at peak exercise, the PVCs were noted, isolated in fashion, but they improved and disappeared at peak exercise and came back again in recovery. There were no significant ST-segment changes to indicate ischemia. There was no angina. By EKG criteria, this is considered as a negative stress test with good exercise capacity. Isolated PVCs were noted, which seemed to be noted at rest and in recovery but with increased heart rate, the PVCs disappeared. There was no angina. There were minor resting EKG changes, but this is considered as a negative stress test without any ST-segment changes or angina. The nuclear scan results which are more pertinent, will be reported by the radiologist. NILS / GLADIS: [id number] /
== END | disposition home or self-care (01) ==
LOC: RADNMMAIN 07:52
PROVIDERS: ATTEND Family Medicine
DX: I25.9 Chronic ischemic heart disease, unspecified (principal); I44.0 Atrioventricular block, first degree
CPT/HCPCS: 93017; 78452; A9500

== ENCOUNTER → 2021-07-17 | Outpatient (CLI) | payer MEDICARE ==
[2021-07-17 17:13] LABS: Chol/HDL Ratio 3.91 Ratio; HDL Cholesterol 49.4 mg/dL (40.00-60.00); LDL Cholesterol,Calculated 126.5 mg/dL (0.0-131.0); Triglycerides 85.5 mg/dL (0.00-149.00); VLDL Calculation 17.1 mg/dL (5.00-40.00)
== END | disposition home or self-care (01) ==
LOC: LABWHC1 09:02
PROVIDERS: ATTEND Internal Medicine
DX: E78.2 Mixed hyperlipidemia (principal)
CPT/HCPCS: 36415; 80061; 84450; 84460

== ENCOUNTER 2022-05-11 07:19 | Day surgery (SDC) | payer MEDICARE ==
[2022-05-08 12:24] VITALS: BMI 25.7
[~2022-05-11 07:19] MED LIST: ALPRAZolam 0.25 MG TAB PO PRN; ALPRAZolam 0.5 MG TAB PO PRN; ASPIRIN 325 MG TAB PO STA; ATORVASTATIN 80 MG TAB PO STA; HEPARIN SODIUM,PORCINE 10,000 UNIT in SODIUM CHLORIDE 0.9% 1,000 ML IRRIGATION PRN; HEPARIN SODIUM,PORCINE 2,500 UNIT in SODIUM CHLORIDE 0.9% 250 ML IRRIGATION PRN; NITROGLYCERIN SL TABS 0.4 MG TAB SUBLINGUAL PRN; SODIUM CHLORIDE 0.9% 1,000 ML in EMPTY BAG 1 BAG IV SCH
[2022-05-11] MEDS ORDERED: SODIUM CHLORIDE 0.9% 1,000 ML IV ONE (07:39)
[2022-05-11 07:42] VITALS: RESP 16; TEMP 97.9
[2022-05-11 07:50] LABS: HCT 43.1 % (39.0-53.0); HGB 13.6 gm/dL (13.0-17.5); MCH 26.5 pg (25.0-35.0); MCHC 31.5 g/dL (31.0-37.0); MCV 84.2 fL (80.0-100.0); Mean Platelet Volume 7.5; Platelet Count 159 k/uL (150-450); RBC 5.12 m/uL (4.30-5.90); RDW 14.5 % (11.5-15.5); WBC 5.2 k/uL (3.8-10.6)
[2022-05-11 08:14] LABS: Eosinophils # (M) 0.16 k/uL (0-0.7); Monocytes # (M) 0.31 k/uL (0-1.0); Neutrophils # (M) 3.43 k/uL (1.3-7.7); Neutrophils % (M) 66 %; Nucleated Red Blood Cells 0 /100 WBC (0-0); Total Cells Counted 100
[2022-05-11 08:21] LABS: Potassium 4.2 mmol/L (3.5-5.1)
[2022-05-11] MEDS ORDERED: VERAPAMIL 2.5 MG/ML 2 ML AMP ONE (09:13)
[2022-05-11] MEDS ORDERED: fentaNYL (PF) 50 MCG/ML 2 ML AMP ONE (09:25)
[2022-05-11] MEDS ORDERED: HEPARIN SODIUM 1,000 UN/ML (10ML VL) ONE (09:26)
[2022-05-11] MEDS ORDERED: fentaNYL (PF) 50 MCG/ML 2 ML AMP IV ONE (09:39)
[2022-05-11] MEDS ORDERED: MIDAZOLAM 2 MG/2 ML VIAL IV ONE (09:39)
[2022-05-11] MEDS ORDERED: LIDOCAINE 1% INJ 10MG/ML (30 ML VIAL-PF) SQ ONE (09:39)
[2022-05-11] MEDS ORDERED: VERAPAMIL SYRINGE (5 MG/10 ML) INTRAARTER ONE (09:40)
[2022-05-11] MEDS: HEPARIN SODIUM 1,000 UN/ML (10ML VL) IV ONE ×3 (09:44→10:21)
[2022-05-11] MEDS ORDERED: CLOPIDOGREL 75 MG TAB ONE (10:08)
[2022-05-11] MEDS ORDERED: IOPAMIDOL-370 125ML BTL INJ ONE (10:09)
[2022-05-11] MEDS ORDERED: CLOPIDOGREL 75 MG TAB PO ONE (10:13)
[2022-05-11] MEDS ORDERED: IOPAMIDOL-370 100ML BTL INJ ONE (10:32)
[2022-05-11 16:15] VITALS: BP 103/58; PULSE 50
[2022-05-11] MEDS ORDERED: ZOLPIDEM 5 MG TAB PO PRN (20:13)
[2022-05-11] MEDS ORDERED: ATROPINE SULFATE 0.1 MG/ML 10ML SYRINGE IV PRN (20:13)
[2022-05-11] MEDS ORDERED: MAG HYDROX/AL HYDROX/SIMETH 30 ML CUP PO PRN (20:13)
[2022-05-11] MEDS ORDERED: NITROGLYCERIN SL TABS 0.4 MG TAB SUBLINGUAL PRN (20:13)
[2022-05-11] MEDS ORDERED: RX INFO: IV CONTRAST WAS GIVEN 1 EACH MISC MISCELLANE PRN (20:13)
--- NOTE | 2022-05-11 20:13 | P.PRCINT ---
Percutaneous Coronary Int. - Percutaneous Coronary Intervention Percutaneous Coronary Intervention: PROCEDURES PERFORMED: Left heart catheterization, bilateral coronary angiography, iFR LAD, PCI proximal to mid LAD with 2.75 x 18mm Xience DAKOTA, post dilated with a 3.0mm NC balloon INDICATION: Abnormal stress test, new-onset chest pain and dyspnea consistent with unstable angina CONSENT:I have discussed the risks, benefits and alternative therapies for the above-mentioned procedure and for both sedation/analgesia as well as necessary blood product administration, if indicated, as they pertain to this patient. The patient has indicated understanding and acceptance of the risks and procedures discussed. PROCEDURE: After the risks, benefits and alternatives of the above mentioned procedure explained in detail with the patient, informed consent was obtained. Patient was taken to the catheterization lab and prepped and draped in usual fashion. 1% lidocaine was used to anesthetize the right radial artery. A 6- Kenyan sheath was placed in the right radial artery using modified Seldinger technique. Left coronary angiography was performed with a 5-Kenyan JL 3.5 catheter and right coronary angiography was performed with a 5-Kenyan JR5 catheter in various views. A 5-Kenyan FR5 catheter was inserted into the left ventricle and pressure measurements were obtained. The decision was made to perform iFR of the LAD. A 6-Kenyan CLS 3.0 guide was used to engage the left main. A 0.014 pressure wire was advanced to the left main and normalized. The wire was then advanced 1 cm distal to the mid LAD lesion and iFR was performed and abnormal at 0.85. Therefore the decision was made to perform PCI of the LAD. Predilation was performed with a 2.5 x 15 mm balloon. Next a 2.75 x 18 mm Xience DAKOTA was advanced and deployed in the proximal to mid LAD, just distal to a small caliber diagonal 1 branch. The stent was postdilated with a 3.0 noncompliant balloon proximally. Final angiograms were performed. Pre-intervention there was a 70% proximal to mid LAD stenosis and TINO-3 flow and postintervention there was 0% percent stenosis and TINO-3 flow. The right radial sheath was removed and a TR band was placed with hemostasis achieved. The patient tolerated the procedure well. Patient was transported back to the post catheterization holding area in stable condition. Conscious Sedation: Patient was monitored under the direct supervision of vision of myself for conscious sedation using Versed and fentanyl for a total duration of 36 minutes HEMODYNAMICS: Aorta: 138/81 LV: 142/5, LVEDP 16 mmHg SELECTIVE CORONARY ARTERIOGRAPHY: LEFT MAIN: The left main is a large caliber vessel which bifurcates into the LAD and circumflex. There is no significant stenosis. LEFT ANTERIOR DESCENDING CORONARY ARTERY: LAD is a large caliber vessel which wraps around to the apex. There is diffuse mild 30-40% stenosis of the proximal to mid LAD and a more focal napkin ring 70% stenosis at the level of a small caliber diagonal 1 branch. Otherwise there are mild luminal irregularities. LEFT CIRCUMFLEX CORONARY ARTERY: Left circumflex is a moderate to large caliber vessel with mild luminal irregularities RIGHT CORONARY ARTERY: The right coronary artery is a large caliber vessel which gives off a PDA and PLV branch and is the dominant vessel. There are mild luminal irregularities. There is a distal RCA 50% stenosis. FINAL IMPRESSION: 1. CAD as described above with 70% proximal LAD stenosis and 50% RCA stenosis 2. S/p PCI proximal to mid LAD with 2.75 x 18mm Xience DAKOTA, post dilated with a 3.0mm NC balloon 3. Normal left sided filling pressures PLAN: 1. Aggressive risk factor modification per most recent ACC/AHA guidelines. 2. Continue dual antiplatelets with aspirin and Plavix for 12 months.
[2022-05-12] MEDS ORDERED: CLOPIDOGREL 75 MG TAB PO SCH (09:00)
[2022-05-12] MEDS ORDERED: ASPIRIN 81 MG PO SCH (09:00)
== END 2022-05-11 15:52 | disposition home or self-care (01) ==
LOC: CATHCVL 07:19
PROVIDERS: ATTEND Internal Medicine
DX: I25.110 Atherosclerotic heart disease of native coronary artery with unstable angina pectoris (principal); R94.39 Abnormal result of other cardiovascular function study; E78.5 Hyperlipidemia, unspecified; R00.1 Bradycardia, unspecified; I34.0 Nonrheumatic mitral (valve) insufficiency; Z20.822 Contact with and (suspected) exposure to COVID-19; Z82.49 Family history of ischemic heart disease and other diseases of the circulatory system; Z79.82 Long term (current) use of aspirin; Z79.899 Other long term (current) drug therapy
CPT/HCPCS: 93458; 93799; 80048; 85025; 87635; C9600; C1887; C1769 ×2; C1894; C1725 ×2; C1874; J2250; J2001; J3010; J1644; Q9967 ×2

== ENCOUNTER → 2024-11-01 | Outpatient (CLI) | payer MEDICARE ==
[2024-11-01 17:30] LABS: African American GFR (CKD) 71 (>60 ml/min/1.73 sqM); Blood Urea Nitrogen 26 mg/dL (9-20); Non-African American GFR(CKD) 61 (>60 ml/min/1.73 sqM)
--- NOTE | 2024-11-05 10:44 | CT ---
EXAMINATION TYPE: CT abdomen pelvis w con DATE OF EXAM: 11/01/2024 6:18 PM COMPARISON: 10/31/2016 CLINICAL INDICATION: Male, 79 years old with history of R19.09 OTHER INTRA-ABDOMINAL AND PELVIC SWELL ING,, abdominal/pelvic pain and swelling TECHNIQUE: Axial images were obtained from above the diaphragm to the pubic rami in the axial plane a t 5 mm thick sections. Reconstructed images are reviewed on the computer in the coronal plane. CONTRAST: 100 mL of Isovue 300. Study performed with Oral Contrast DLP: 1288.1 mGycm, Automated exposure control for dose reduction was used. FINDINGS: Limited CT sections are obtained the lung bases. Mild streak atelectasis left lung base. Coronary ca lcification is present. CT ABDOMEN: Liver: Normal Spleen: Normal Pancreas: Normal Adrenal glands: The adrenal glands are normal. Gallbladder: Normal Kidneys: No masses are evident. No hydronephrosis is present. Parapelvic cysts are present bilatera lly.These are better appreciated on delayed images Aorta: Vascular calcification is within the aorta. Inferior vena cava: Normal. CT PELVIS: Loops of bowel within the abdomen and pelvis are normal. There are loops of bowel which are incom pletely distended or lack oral contrast limiting their evaluation. Appendix: Normal as visualized. Urinary bladder: There is a large stellate calcification within the dependent urinary bladder. This m easures 3.2 cm in size. This is new from comparison Genitourinary structures: Prostate is prominent Osseous structures: No suspicious lytic or sclerotic lesions. IMPRESSION: 1. Interval development of a large 3 cm calcification within the urinary bladder. [facility], , 11/05/2024 10:42 AM
== END | disposition home or self-care (01) ==
LOC: RADCTMAIN 16:08
PROVIDERS: ATTEND Internal Medicine Gastroenterology
DX: N32.89 Other specified disorders of bladder (principal); R19.09 Other intra-abdominal and pelvic swelling, mass and lump
CPT/HCPCS: 82565; 84520; 74177; 36415; Q9967